=== PATIENT | female | born 1995 ===

== ENCOUNTER → 2025-07-03 | Emergency (ER) | payer OTHER ==
[~2025-07-03] VITALS: Ht 165.1 cm; Wt 54.9 kg
[~2025-07-03] MED LIST: ACETAMINOPHEN 500 MG GEL..CAP PO ONE; NAPROXEN500 MG PO
[2025-07-03 12:50] LABS: BASO % 0.7 % (0.1-1.2); EOS # 0.09 (0.04-0.54); EOS % 0.8 % (0.7-7.0); LYMPH # 1.11 (1.18-3.74); LYMPH % 9.8 % (19.3-53.1); MEAN PLATELET VOLUME 9.40 fl (9.4-12.4); MONO # 0.90 (0.24-0.82); MONO % 8.0 % (4.7-12.5); NEUT # 9.08 (1.56-6.13); NEUT % 80.3 % (34.0-71.1); RED CELL DISTRIBUTION WIDTH 13.3 % (11.6-14.4)
[2025-07-03 13:11] LABS: INR 1.04
[2025-07-03 13:14] LABS: BUN CREA RATIO 10.0 (7.0-25.0); CREATININE SERUM 0.78 mg/dL (0.55-1.02); GFR 87.94; GLUCOSE FASTING 99.0 mg/dL (65-100); OSMOLALITY SERUM 280.0 MOSM/KG (275-295)
[2025-07-03 15:37] LABS: URINE APPEARANCE Clear; URINE BILIRRUBIN Negative (NEGATIVE); URINE BLOOD Large; URINE COLOR Yellow; URINE GLUCOSE Negative (NEGATIVE); URINE KETONE 15 (NEGATIVE); URINE LEUKOCYTE Small; URINE NITRATE Negative; URINE PROTEIN Negative (NEGATIVE); URINE UROBILINOGEN 1.0 E.U./dl
[2025-07-03 15:40] LABS: URINE BACTERIA 799.1 uL (0.0-1933); URINE EPITHELIAL CELLS 48.4 uL (0.0-38.8); URINE RBC 42.9 uL (0.0-20.8); URINE WBC 28.1 uL (0.0-23.2)
[2025-07-03 15:49] LABS: URINE CAST 0.00 uL (0.0-1.40)
[2025-07-03 15:53] LABS: URINE MUCUS MODERATE
[2025-07-03 15:54] LABS: TYPE CELLS SQUAMOUS
== END | disposition home or self-care (01) ==
LOC: ER 10:43
PROVIDERS: General Practice
DX: R10.20 Pelvic and perineal pain unspecified side (principal); N83.292 Other ovarian cyst, left side